=== PATIENT | male | born 1960 | race Caucasian/White ===

== ENCOUNTER 2016-09-24 17:41 | Inpatient (IN) | payer OTHER ==
[2016-09-24] MEDS ORDERED: IOPAMIDOL 370 (76%) 100 ML VIAL IV ONE (17:42)
[2016-09-24] MEDS ORDERED: ASPIRIN CHEWTAB 81 MG TABLET ONE (18:14)
[2016-09-24 18:20] LABS: ABSOLUTE NEUTROPHIL COUNT 8.7 K/mm3 (1.8-7.7); BASO % 0.2 % (0.2-1.0); EOS % 0.2 % (0.9-2.9); HEMATOCRIT 41.7 % (32.0-52.0); HEMOGLOBIN 14.9 gm/l (14.0-18.0); IMM NEUT% 0.3 % (0-1); LYMPH # 2.3 (1.0-4.8); LYMPH % 18.7 % (15-45); MEAN CELL VOLUME 102.2 fl (80.0-94.0); MEAN CORPUSCULAR HEMOGLOBIN 36.5 pg (27.0-31.0); MEAN CORPUSCULAR HGB CONC 35.7 g/dl (33.0-37.0); MEAN PLATELET VOLUME 9.7 fl (7.4-10.4); MONO # 1.2 (0.0-0.8); MONO % 9.7 % (4-12); NEUT % 70.9 % (43-75); PLATELET COUNT 225 K/mm3 (130-400); RED CELL DISTRIBUTION WIDTH 13.1 % (11.5-14.5)
[2016-09-24 18:45] LABS: ALB/GLOB RATIO 1.5 (>1.0); ALBUMIN 4.1 gm/dL (3.5-5.7); CALCIUM 9.2 mg/dL (8.6-10.3); MAGNESIUM 1.7 mg/dL (1.9-2.7)
[2016-09-24 18:46] LABS: TROPONIN I < 0.01 ng/ml (0.0-0.06)
[2016-09-24 18:51] LABS: CKMB ISOENZYME 1.7 ng/ml (0.6-6.3)
[2016-09-24 18:58] LABS: URINE BILIRUBIN NEGATIVE (NEGATIVE); URINE BLOOD NEGATIVE (NEGATIVE); URINE GLUCOSE (UA) NEGATIVE (NEGATIVE); URINE LEUKOCYTE ESTERASE NEGATIVE (NEGATIVE); URINE NITRITE NEGATIVE (NEGATIVE); URINE PROTEIN NEGATIVE (NEGATIVE); URINE UROBILINOGEN NORMAL (0-1 mg/dl)
[2016-09-24 19:09] LABS: URINE APPEARANCE CLEAR; URINE COLOR YELLOW
--- NOTE | 2016-09-24 20:19 | CT ---
ADDENDUM #1 IMPRESSION: The nodule seen in the right lower lobe has not changed since 08/30/2013 CT. The findings were discussed with Francie Chowdhury M.D. 10/15/2016 at 17:03 ORIGINAL REPORT EXAMINATION: CT angiography of the thorax.CTA CHEST FOR PE INDICATION: Chest pain. Elevated d-dimer. COMPARISON: None. TECHNIQUE: Helical scan mode CT of the Thorax after uneventful intravenous contrast administration of 80 ml of Isovue-370. Imaging device: [employer] multidetector CT scan. Helically acquired stacked images were reviewed in the axial, sagittal and coronal planes. Additional 3-D postprocessing was performed and reconstructed images were acquired at the [employer] workstation and reviewed as well. FINDINGS: The bolus is of good quality for diagnosis of pulmonary embolism. There are pulmonary arterial filling defects. There are emboli within the posterior basilar segment of the left lower lobe summary artery. No other discrete visible emboli are identified. There are no vascular malformations. The lung parenchyma: There is mild basilar atelectasis bilaterally. There is a groundglass nodular opacity within the right lower lobe peripherally. This measures approximately 8 mm in size. Pleural effusion: None: Mediastinum: There is no axillary, mediastinal or hilar adenopathy. The heart and great vessels opacify normally. Osseus structures: No gross lytic or blastic lesions. Soft tissues: within normal limits Limited evaluation of the abdomen on this arterial phase injection reveals: no gross abnormalities. IMPRESSION: 1. Positive for pulmonary embolism. There is a subsegmental emboli within the posterior basilar segment of the left lower lobe. No other discrete emboli are identified. 2. Groundglass nodular opacity within the periphery of the right lower lobe. This measures 8 mm in size. Follow-up CT scan in 3-6 months to reassess is recommended. Findings were discussed with Dr. Hernandez at 8:15 PM 09/24/2016
[2016-09-24] MEDS ORDERED: MORPHINE SULFATE 4 MG/ML SYRINGE ONE (20:34)
[2016-09-24] MEDS ORDERED: ENOXAPARIN SODIUM 100 MG/ML SYRINGE SUB-Q ONE (20:34)
--- NOTE | 2016-09-24 20:38 | RAD ---
EXAMINATION:CHEST - 2 VIEWS CLINICAL INDICATION: Chest pain for 2 weeks. COMPARISON:none FINDINGS: The cardiomediastinal silhouette is within normal limits. There is no adenopathy identified. There is no pleural effusion. There are groundglass opacities within the right middle and lingular distributions. This may reflect subtle infiltrates/pneumonia. The osseous structures are unremarkable for age. IMPRESSION: Bibasilar infiltrates right greater than left.
[2016-09-24] MEDS ORDERED: ACETAMINOPHEN 325 MG TABLET PO PRN (22:29)
[2016-09-24] MEDS ORDERED: CHLORDIAZEPOXIDE HCL 10 MG CAPSULE PO PRN (22:29)
[2016-09-24] MEDS ORDERED: MULTIVITAMINS 10 ML, FOLIC ACID 2 MG, MAGNESIUM SULFATE 1 G/2 ML 2 G, THIAMINE HCL 100 ... IV ONE ×5 (22:29)
[2016-09-24] MEDS ORDERED: SODIUM CHLORIDE 0.9% 100 ML IV PRN (22:29)
[2016-09-24] MEDS ORDERED: BISACODYL 5 MG TABLET.EC PO PRN (22:29)
[2016-09-24] MEDS ORDERED: MAGNESIUM HYDROXIDE 30 ML UDCUP PO PRN (22:29)
[2016-09-24] MEDS ORDERED: MENTHOL/CETYLPYRD 1 EACH LOZENGE PO PRN (22:29)
[2016-09-24] MEDS ORDERED: BISACODYL 10 MG SUP PR PRN (22:29)
[2016-09-24] MEDS ORDERED: BLISTEX LIPSTICK 1 EACH TP PRN (22:29)
[2016-09-24] MEDS ORDERED: ALBUTEROL NEB 2.5 MG/3 ML VIAL.NEB NEB PRN (22:33)
[2016-09-24] MEDS ORDERED: MULTIVITAMINS 1,000 ML IV ONE (23:01)
[2016-09-24] MEDS ORDERED: SODIUM CHLORIDE 0.9% 1,000 ML ONE (23:02)
[2016-09-24] MEDS: HYDROCODONE/ACETAMINOPHEN 5/325MG TABLET PO PRN (23:04)
[2016-09-24] MEDS ORDERED: PUMP TUBING ONE (23:16)
[2016-09-25 02:12] VITALS: BMI 24.4
[2016-09-25] MEDS ORDERED: FLU VACC 2016-17 (36MO-64Y)/PF 60 MCG/0.5 ML SYRINGE IM V ONE (02:12)
[2016-09-25 06:08] LABS: HEMATOCRIT 37.1 % (32.0-52.0); HEMOGLOBIN 13.1 gm/l (14.0-18.0); MEAN CELL VOLUME 104.2 fl (80.0-94.0); MEAN CORPUSCULAR HEMOGLOBIN 36.8 pg (27.0-31.0); MEAN CORPUSCULAR HGB CONC 35.3 g/dl (33.0-37.0); RED CELL DISTRIBUTION WIDTH 13.4 % (11.5-14.5)
[2016-09-25 06:29] LABS: CALCIUM 8.3 mg/dL (8.6-10.3); MAGNESIUM 2.2 mg/dL (1.9-2.7)
--- NOTE | 2016-09-25 07:47 | HP ---
Jarrett Torres ADMIT DATE: 09/24/2016 CHIEF COMPLAINT: Chest pain. HISTORY OF PRESENT ILLNESS: Jarrett is a 55-year-old male with no known cardiac history. He presented to the emergency room tonight with about a two week history of chest pain. He describes it as a pressure/heavy pain. It seems to have gotten worse in the last day or so. It has gotten significantly worse now up to a 9/10. It is associated with some sweating, but no actual fevers. No nausea, no vomiting, no heart palpitations, no cough. There has been no leg swelling. Really no other complaints. In the emergency room he was worked up and found to have evidence of a small pulmonary emboli in the left lower lobe and possibly the right middle lobe. He was subsequently admitted to the hospitalist service to initiate treatment. REVIEW OF SYSTEMS: As noted above otherwise, negative. PAST MEDICAL HISTORY: 1. Benign prostatic hypertrophy. 2. Gastroesophageal reflux disease. 3. Daily alcohol use. 4. Daily marijuana use. ALLERGIES: MEPERIDINE. CURRENT MEDICATIONS: Ranitidine 150 by mouth as needed. SOCIAL HISTORY: He is though, he and his are and in the middle of a divorce. Their house is foreclosure and he is under quite a bit more stress than normal. He drinks at 6 or 7 drinks a day, possibly more. He smokes marijuana on a daily basis as well. Continues to smoke about a half of a pack of cigarettes a day. He is no longer working though, he used work at [employer]. FAMILY HISTORY: Negative for blood clots. Negative for cancer. OBJECTIVE: VITAL SIGNS: Temperature 97.9, pulse 95, O2 sat 97% on room air, respirations 18 and unlabored, blood pressure 135/92. GENERAL: This is well-developed, well-nourished middle aged male in no distress. HEENT: TM's intact. Orophyarnx is moist. NECK: Supple. LUNGS: Completely clear with no wheezes, rales, or rhonchi. HEART: Regular. No murmurs or gallops. ABDOMEN: Soft. EXTREMITIES: No edema. Klarissa's sign is negative. LABS: CBC with a white count of 12.3, hemoglobin 14.9, hematocrit 41.2, platelets of 225, MCV is elevated at 102.2. Chemistry panel, sodium 136, potassium 3.7, chloride 99, carbon dioxide 24, BUN 8, creatinine 0.7, glucose 96. CK-MB of 1.7. Troponin less than 0.01. D-dimer is elevated at 1.83. Urinalysis is clear. DIAGNOSTIC: Chest CT angiogram shows small pulmonary emboli in the left lower lobe and possibly right middle lobe as well. ASSESSMENT: 1. Acute pulmonary emboli. 2. Daily alcohol use with no history of withdraw/delirium tremens. PLAN: We have referred him to observation. He has been started on full dose Lovenox in the emergency room and will continue with this. We will give him Coumadin in the morning as well as educate him on how to self administer the Lovenox. Given his daily alcohol use we will go ahead and place him on CIWA protocol. Supportive care otherwise. Further care dictated by clinical course. JOB: [id number] CC: Dr. Francie Chowdhury
[2016-09-25] MEDS ORDERED: ENOXAPARIN SODIUM 80 MG/0.8 ML SYRINGE SUB-Q SCH (09:00)
[2016-09-25] MEDS: HYDROCODONE/ACETAMINOPHEN 5/325MG TABLET PO PRN (09:12)
[2016-09-25 11:34] VITALS: BP 124/80
[2016-09-25] MEDS ORDERED: ENOXAPARIN SODIUM 40 MG/0.4 ML SYRINGE SUB-Q ONE (12:12)
--- NOTE | 2016-09-25 12:18 | PDOC43 ---
- Subjective Chief Complaint: chest pain Pain is down to 2-3/10. Lots of questions about PE and treatment. - Objective Vital Signs Temperature 97.0 F 09/25/16 11:34 Pulse Rate 75 09/25/16 11:34 Respiratory Rate 16 09/25/16 11:34 Blood Pressure 124/80 09/25/16 11:34 O2 Saturation by Pulse Oximetry 97 09/25/16 11:34 Oxygen Delivery Method Room Air Oxygen Flow Rate 0 Intake and Output 09/24/16 09/25/16 09/26/16 06:59 06:59 06:59 Intake Total 782 Output Total 375 Balance 407 General: Alert, Oriented x3, Cooperative, No Acute Distress HEENT: Mucous membr. moist/pink Lungs: Clear to Auscultation Bilaterally Cardiovascular: Regular Rate and Rhythm Abdomen: Soft, Normal Bowel Sounds, No Tenderness, No Masses Extremities: Normal Pulses, No Edema Neurological: Normal Speech Psych/Mental Status: Normal Mood Laboratory 09/25/16 05:30 09/25/16 05:30 09/25/16 05:30 RBC 3.56 L MCV 104.2 H MCH 36.8 H Estimated GFR 100 H Calcium 8.3 L Current Medications: Current meds reviewed in EMR. - Problems: Assessment/Plan (1) Pulmonary embolism Qualifiers: Pulmonary embolism type: other Chronicity: acute Acute cor pulmonale presence: without acute cor pulmonale Qualifier Code: (I26.99) Other pulmonary embolism without acute cor pulmonale Status: AcuteAssessment /Plan: Stable, no O2 requirement, discharge and f/u at [facility] for enoxaparin/warfarin. (2) Alcohol dependence Qualifiers: Substance use status: uncomplicated Qualifier Code: (F10.20) Alcohol dependence, uncomplicated Status: ChronicAssessment/Plan: Recommended reduction with warfarin treatment (3) BPH (benign prostatic hyperplasia) Qualifiers: Prostatic enlargement morphology: unspecified morphology Lower urinary tract symptom presence: symptoms present Qualifier Code: (N40.1) Benign prostatic hyperplasia with lower urinary tract symptoms Status: Chronic Assessment/Plan: stable on tamsulosin VTE Prophylaxis: enoxaparin/warfarin Disposition: Home
[2016-09-25 12:53] LABS: INR 0.96; PROTHROMBIN TIME 10.1 SECONDS (9.3-11.4)
[2016-09-25] MEDS ORDERED: WARFARIN SODIUM 5 MG TABLET PO ONE (13:00)
[2016-09-26] MEDS ORDERED: ENOXAPARIN SODIUM 120 MG/0.8 ML SYRINGE SUB-Q SCH (09:00)
[2016-09-26] MEDS ORDERED: WARFARIN SODIUM 5 MG TABLET PO SCH (16:00)
== END 2016-09-25 16:32 | disposition home or self-care (01) | DRG 176 ==
LOC: ED 17:41 → MS 20:49
PROVIDERS: ADMIT Family Medicine; ATTEND Family Medicine
DX: I26.99 Other pulmonary embolism without acute cor pulmonale (principal); J98.11 Atelectasis; R91.8 Other nonspecific abnormal finding of lung field; N40.0 Benign prostatic hyperplasia without lower urinary tract symptoms; K21.9 Gastro-esophageal reflux disease without esophagitis; F10.20 Alcohol dependence, uncomplicated; F12.20 Cannabis dependence, uncomplicated; F17.210 Nicotine dependence, cigarettes, uncomplicated